=== PATIENT | female | born 1990 | race African-American/Black ===

== ENCOUNTER 2019-08-29 01:52 | Emergency (ER) | payer SELFPAY ==
[~2019-08-29] VITALS: Ht 175.3 cm; Wt 73.0 kg
[2019-08-29 02:00] VITALS: BP 137/84
== END 2019-08-29 03:05 | disposition left against medical advice (07) ==
LOC: ER 01:52
DX: R07.9 Chest pain, unspecified (principal)
CPT/HCPCS: 93005; 99283